=== PATIENT | male | born 1940 | race Caucasian/White ===

== ENCOUNTER 2016-07-16 12:53 | Emergency (ER) | payer MEDICARE ==
[~2016-07-16] VITALS: Ht 182.9 cm; Wt 91.0 kg
[~2016-07-16 12:53] MED LIST: AMOX1TAB64 PO; HYDR-3240 PO
[2016-07-16] MEDS ORDERED: NAPR1TAB25 PO (13:09)
[2016-07-16] MEDS ORDERED: LIDOCAINE 1%-EPI 1:100K, 20ML ONE (13:17)
[2016-07-16] MEDS ORDERED: DIPH,PERTUSS(ACELL),TET VAC/PF 0.5 ML IM-VACC ONE ×2 (13:17→13:30)
[2016-07-16] MEDS ORDERED: LIDOCAINE 1%-EPI 1:100K, 50ML INFIL ONE (13:30)
[2016-07-16 14:04] VITALS: BP 163/104
[2016-07-16] MEDS ORDERED: BACITRACIN ZINC OINT 500U/GM, 0.9 GM ONE (15:37)
== END 2016-07-16 16:02 | disposition home or self-care (01) ==
LOC: ED 15:56
DX: S01.81XA Laceration without foreign body of other part of head, initial encounter (principal); Z23 Encounter for immunization; Z85.828 Personal history of other malignant neoplasm of skin; W19.XXXA Unspecified fall, initial encounter; Y93.89 Activity, other specified; Y99.8 Other external cause status; Y92.89 Other specified places as the place of occurrence of the external cause
CPT/HCPCS: 12002; 70450; 70486; 90471; 90715

== ENCOUNTER 2018-08-11 01:32 | Inpatient (IN) | payer MEDICARE ==
[~2018-08-11] VITALS: Ht 182.9 cm; Wt 71.8 kg
[~2018-08-11 01:32] MED LIST changes: +NAPR1TAB25 PO
--- NOTE | 2018-08-11 01:53 | NUR ---
pt presented with c/o cough 5 days with all kalani pain with SOB and lost 20lbs for 2 months. monitors applied, siderail sup x2, call light within reach
[2018-08-11] MEDS ORDERED: SODIUM CHLORIDE FLUSH 10ML SYR IVF ONE (02:00)
--- NOTE | 2018-08-11 02:06 | NUR ---
BREAK RN NOTE ROSA JAMES IS STARTING IV VSS
[2018-08-11 02:24] LABS: MEAN CORPUSCULAR HEMOGLOBIN 29.7 pg (27.5-34.5); MEAN CORPUSCULAR HGB CONC 33.1 g/dL (33.2-36.2); MEAN CORPUSCULAR VOLUME 89.8 fL (81-97); MEAN PLATELET VOLUME 7.3 fL (7.4-10.4); RED BLOOD COUNT 4.81 x10^6/uL (4.38-5.82); RED CELL DISTRIBUTION WIDTH 15.9 % (9.4-14.8)
[2018-08-11 02:29] LABS: PLATELET COUNT 1191 x10^3/uL (130-400)
[2018-08-11 02:31] LABS: ALANINE AMINOTRANSFERASE 44 U/L (12-78); ALBUMIN 2.9 g/dL (3.4-5.0); ANION GAP 6 mmol/L (5-15); CALCIUM 9.4 mg/dL (8.5-10.1); CHLORIDE 106 mmol/L (98-107); CREATININE 1.17 mg/dL (0.7-1.3)
[2018-08-11 02:36] LABS: ALKALINE PHOSPHATASE 108 U/L (45-117); BILIRUBIN,TOTAL 0.4 mg/dL (0.2-1.0); T4 (THYROXINE) 11.7 mcg/dL (4.5-12.1); TOTAL PROTEIN 7.2 g/dL (6.4-8.2); TROPONIN I < 0.015 ng/mL (0.000-0.045)
[2018-08-11 02:41] LABS: BASOPHILS # (AUTO) 0.01 x10^3/uL (0-0.1); BASOPHILS % (AUTO) 0 % (0-1); EOSINOPHILS # (AUTO) 0.08 x10^3/uL (0-0.4); EOSINOPHILS % (AUTO) 1 % (1-7); LYMPHOCYTES % (AUTO) 5 % (22-44); MD MORPH REVIEW ONLY; MONOCYTES # (AUTO) 0.45 x10^3/uL (0.2-0.8); MONOCYTES % (AUTO) 3 % (2-9); NEUTROPHILS # (AUTO) 12.11 x10^3/uL (1.8-6.8); NEUTROPHILS % (AUTO) 91 % (42-75)
[2018-08-11 02:42] LABS: <PLATELET ESTIMATE> INCREASED; ANISOCYTOSIS 1+
[2018-08-11 02:43] LABS: LARGE PLATELETS 1+
[2018-08-11] MEDS ORDERED: OMNIPAQUE 350 MG/ML, 100ML BOTTLE ONE (02:59)
[2018-08-11] MEDS ORDERED: SODIUM CHLORIDE 0.9% 1,000ML IVBOLUS ONE (03:00)
--- NOTE | 2018-08-11 03:05 | NUR ---
PT RESTING ON GURNEY, IV FLUIDS INFUSING, MONITORS IN PLACE, CALL LIGHT WITHIN REACH.
[2018-08-11] MEDS ORDERED: CEFTRIAXONE PMX 1GM/50ML 50 ML ONE (03:38)
--- NOTE | 2018-08-11 03:53 | NUR ---
ANGLE SHEARER AT PT'S BEDSIDE FOR LAB DRAW, BLOOD C/X X2 SETS
[2018-08-11] MEDS ORDERED: CEFTRIAXONE PMX 1GM/50ML 50 ML IVPB ONE (04:00)
[2018-08-11] MEDS ORDERED: AZITHROMYCIN 500 MG in SODIUM CHLORIDE 0.9% 250 ML IVPB ONE (04:00)
--- NOTE | 2018-08-11 04:00 | NUR ---
PT RESTING ON GURNEY, IV ABX STARTED, MONITORS IN PLACE, CALL LIGHT WITHINREACH. AWAITING ROOM FOR ADMIT
[2018-08-11] MEDS ORDERED: ONDANSETRON 2MG/ML, 2ML ONE (04:49)
[2018-08-11] MEDS: ONDANSETRON 2MG/ML, 2ML IVPush PRN (04:50)
--- NOTE | 2018-08-11 04:54 | NUR ---
pt resting on gurney, monitors in place, call light within reach. admit md at bedside for eval
[2018-08-11] MEDS ORDERED: ALBUTEROL/IPRATROPIUM 2.5MG/0.5MG, 3 ML HHN PRN (05:00)
[2018-08-11 05:42] VITALS: BP 108/70
[2018-08-11] MEDS: SODIUM CHLORIDE 0.9% 1,000 ML IV SCH ×3 (05:53→19:34)
[2018-08-11] MEDS: ASPIRIN 325 MG TABLET EC PO SCH (06:00)
[2018-08-11 07:19] VITALS: BP 96/59
[2018-08-11 07:59] LABS: MEAN CORPUSCULAR HEMOGLOBIN 29.3 pg (27.5-34.5); MEAN CORPUSCULAR HGB CONC 32.3 g/dL (33.2-36.2); MEAN CORPUSCULAR VOLUME 90.7 fL (81-97); RED BLOOD COUNT 4.04 x10^6/uL (4.38-5.82); RED CELL DISTRIBUTION WIDTH 15.7 % (9.4-14.8)
[2018-08-11 08:02] LABS: PLATELET COUNT 1010 x10^3/uL (130-400)
[2018-08-11] MEDS: METRONIDAZOLE PMX 500MG/100ML 100 ML IV SCH ×3 (08:53→19:34)
[2018-08-11 08:59] LABS: BASOPHILS # (AUTO) 0.07 x10^3/uL (0-0.1); BASOPHILS % (AUTO) 1 % (0-1); EOSINOPHILS # (AUTO) 0.05 x10^3/uL (0-0.4); EOSINOPHILS % (AUTO) 0 % (1-7); LYMPHOCYTES # (AUTO) 0.58 x10^3/uL (1-3.4); LYMPHOCYTES % (AUTO) 5 % (22-44); MD SCAN; MONOCYTES # (AUTO) 0.53 x10^3/uL (0.2-0.8); MONOCYTES % (AUTO) 4 % (2-9); NEUTROPHILS # (AUTO) 10.84 x10^3/uL (1.8-6.8); NEUTROPHILS % (AUTO) 90 % (42-75)
[2018-08-11 10:49] LABS: RAPID INFLUENZA A Negative (Negative); RAPID INFLUENZA B Negative (Negative)
[2018-08-11 13:38] VITALS: BP 121/71
[2018-08-11 19:12] VITALS: BP 112/69
[2018-08-12] MEDS: METRONIDAZOLE PMX 500MG/100ML 100 ML IV SCH ×4 (01:28→20:03)
[2018-08-12 01:35] VITALS: BP 148/76
[2018-08-12] MEDS: ACETAMINOPHEN 325 MG TABLET PO PRN (02:15)
[2018-08-12 04:49] LABS: MEAN CORPUSCULAR HEMOGLOBIN 29.7 pg (27.5-34.5); MEAN CORPUSCULAR HGB CONC 33.2 g/dL (33.2-36.2); MEAN CORPUSCULAR VOLUME 89.5 fL (81-97); MEAN PLATELET VOLUME 7.1 fL (7.4-10.4); RED BLOOD COUNT 4.12 x10^6/uL (4.38-5.82); RED CELL DISTRIBUTION WIDTH 15.8 % (9.4-14.8)
[2018-08-12 04:56] LABS: PLATELET COUNT 1004 x10^3/uL (130-400)
[2018-08-12 04:58] LABS: ANION GAP 3 mmol/L (5-15); CALCIUM 8.7 mg/dL (8.5-10.1); CHLORIDE 108 mmol/L (98-107); CREATININE 0.93 mg/dL (0.7-1.3)
[2018-08-12] MEDS: LEVOFLOXACIN/PMX 750MG/150ML 150 ML IV SCH (05:00)
[2018-08-12] MEDS: ASPIRIN 325 MG TABLET EC PO SCH (05:00)
[2018-08-12] MEDS: SODIUM CHLORIDE 0.9% 1,000 ML IV SCH ×4 (05:00→23:02)
[2018-08-12 05:42] LABS: BASOPHILS # (AUTO) 0.02 x10^3/uL (0-0.1); BASOPHILS % (AUTO) 0 % (0-1); EOSINOPHILS # (AUTO) 0.14 x10^3/uL (0-0.4); EOSINOPHILS % (AUTO) 2 % (1-7); LYMPHOCYTES # (AUTO) 0.75 x10^3/uL (1-3.4); LYMPHOCYTES % (AUTO) 10 % (22-44); MD SCAN; MONOCYTES # (AUTO) 0.44 x10^3/uL (0.2-0.8); MONOCYTES % (AUTO) 6 % (2-9); NEUTROPHILS # (AUTO) 6.34 x10^3/uL (1.8-6.8); NEUTROPHILS % (AUTO) 83 % (42-75)
[2018-08-12 07:29] VITALS: BP 134/68
[2018-08-12] MEDS: HEPARIN 5,000 UNITS/ML, 1ML SQ SCH ×2 (11:58→20:03)
[2018-08-12] MEDS ORDERED: METHOCARBAMOL 750 MG TABLET PO PRN (12:00)
[2018-08-12 15:13] VITALS: BP 144/90
--- NOTE | 2018-08-12 17:18 | NUR ---
REC REG/THIN WITH NESHA QUEVEDO; owen precaution sheet posted at bedside Addendum: 08/12/18 at [address] Amended: Links added.
[2018-08-12 19:30] VITALS: BP 154/89
[2018-08-13 01:04] VITALS: BP 119/58
[2018-08-13] MEDS: METRONIDAZOLE PMX 500MG/100ML 100 ML IV SCH ×4 (02:34→20:20)
[2018-08-13] MEDS: HEPARIN 5,000 UNITS/ML, 1ML SQ SCH ×3 (04:22→20:20)
[2018-08-13] MEDS: ASPIRIN 325 MG TABLET EC PO SCH (04:23)
[2018-08-13] MEDS: PANTOPROZOLE 40MG TABLET PO SCH (04:23)
[2018-08-13] MEDS: ACETAMINOPHEN 325 MG TABLET PO PRN (04:23)
[2018-08-13 05:05] LABS: MEAN CORPUSCULAR HGB CONC 33.5 g/dL (33.2-36.2); MEAN CORPUSCULAR VOLUME 89.6 fL (81-97); MEAN PLATELET VOLUME 7.1 fL (7.4-10.4); RED BLOOD COUNT 4.17 x10^6/uL (4.38-5.82); RED CELL DISTRIBUTION WIDTH 15.3 % (9.4-14.8)
[2018-08-13 05:10] LABS: ANION GAP 3 mmol/L (5-15); CALCIUM 8.6 mg/dL (8.5-10.1); CHLORIDE 108 mmol/L (98-107); CREATININE 0.83 mg/dL (0.7-1.3)
[2018-08-13] MEDS: LEVOFLOXACIN/PMX 750MG/150ML 150 ML IV SCH (05:12)
[2018-08-13] MEDS: SODIUM CHLORIDE 0.9% 1,000 ML IV SCH ×2 (05:12→16:46)
[2018-08-13 05:55] LABS: PLATELET COUNT 1039 x10^3/uL (130-400)
[2018-08-13 05:57] LABS: BASOPHILS # (AUTO) 0.01 x10^3/uL (0-0.1); BASOPHILS % (AUTO) 0 % (0-1); EOSINOPHILS # (AUTO) 0.18 x10^3/uL (0-0.4); EOSINOPHILS % (AUTO) 2 % (1-7); LYMPHOCYTES # (AUTO) 0.86 x10^3/uL (1-3.4); LYMPHOCYTES % (AUTO) 12 % (22-44); MD SCAN; MONOCYTES # (AUTO) 0.32 x10^3/uL (0.2-0.8); MONOCYTES % (AUTO) 4 % (2-9); NEUTROPHILS # (AUTO) 6.05 x10^3/uL (1.8-6.8); NEUTROPHILS % (AUTO) 81 % (42-75)
[2018-08-13 08:55] VITALS: BP 105/58
[2018-08-13] MEDS: ONDANSETRON 2MG/ML, 2ML IVPush PRN ×2 (13:33→20:20)
[2018-08-13 13:57] VITALS: BP 151/83
[2018-08-13 13:58] LABS: PSA SCREEN 1.22 ng/mL (0.00-4.00)
[2018-08-13] MEDS ORDERED: OMNIPAQUE 350 MG/ML, 100ML BOTTLE ONE (14:49)
[2018-08-13 18:57] VITALS: BP 143/78
[2018-08-14 00:12] VITALS: BP 130/71
[2018-08-14] MEDS: SODIUM CHLORIDE 0.9% 1,000 ML IV SCH ×2 (00:17→13:58)
[2018-08-14] MEDS: METRONIDAZOLE PMX 500MG/100ML 100 ML IV SCH ×3 (02:19→13:57)
[2018-08-14] MEDS: HEPARIN 5,000 UNITS/ML, 1ML SQ SCH ×2 (04:14→12:06)
[2018-08-14] MEDS: ACETAMINOPHEN 325 MG TABLET PO PRN ×2 (04:17→13:57)
[2018-08-14] MEDS: LEVOFLOXACIN/PMX 750MG/150ML 150 ML IV SCH (05:26)
[2018-08-14] MEDS: ASPIRIN 325 MG TABLET EC PO SCH (05:26)
[2018-08-14] MEDS: PANTOPROZOLE 40MG TABLET PO SCH (05:26)
[2018-08-14 07:03] VITALS: BP 143/75
[2018-08-14] MEDS: ONDANSETRON 2MG/ML, 2ML IVPush PRN (09:26)
[2018-08-14] MEDS ORDERED: ONDANSETRON 8 MG TABLET PO PRN (12:00)
[2018-08-14 13:39] VITALS: BP 125/73
[2018-08-14] MEDS ORDERED: LEVO750T6 PO (15:42)
[2018-08-14] MEDS ORDERED: L.AC1CAP6 PO (15:42)
[2018-08-14] MEDS ORDERED: ASPI-650 PO (15:42)
[2018-08-14] MEDS ORDERED: METR500T PO (15:42)
[2018-08-14] MEDS ORDERED: PANT40TA5 PO (15:42)
== END 2018-08-14 17:51 | disposition home or self-care (01) | DRG 871 ==
LOC: ED 03:05 → EDIP 03:50 → 3NW 05:31
PROVIDERS: ADMIT Internal Medicine; ATTEND Internal Medicine
DX: A41.9 Sepsis, unspecified organism (principal); J69.0 Pneumonitis due to inhalation of food and vomit; J15.9 Unspecified bacterial pneumonia; J98.11 Atelectasis; E44.0 Moderate protein-calorie malnutrition; Z68.21 Body mass index [BMI] 21.0-21.9, adult; M10.9 Gout, unspecified; R53.81 Other malaise; D47.3 Essential (hemorrhagic) thrombocythemia; I87.2 Venous insufficiency (chronic) (peripheral); K44.9 Diaphragmatic hernia without obstruction or gangrene; R13.10 Dysphagia, unspecified; Z85.828 Personal history of other malignant neoplasm of skin; Z87.891 Personal history of nicotine dependence
CPT/HCPCS: 36415; 71046; 71275; 74018; 74177; 74230; 80048; 80053; 81270; 82378; 82668; 83735; 83880; 84145; 84436; 84443; 84484; 85025; 86301; 87040; 87070; 87205; 87400; 87806; 93005; 93306; 96374; 96375; G0103; G0378; J0456; J0696; J1644; J1956; J2405; Q9967; G0475; J7030; J7050

== ENCOUNTER 2019-10-15 17:41 | Inpatient (IN) | payer MEDICARE ==
[~2019-10-15] VITALS: Ht 182.9 cm; Wt 78.0 kg
[~2019-10-15 17:41] MED LIST changes: +ASPI-650 PO; +L.AC1CAP6 PO; +LEVO750T6 PO; +METR500T PO; +PANT40TA6 PO
--- NOTE | 2019-10-15 17:51 | NUR ---
THIS IS A 79 YO MALE BIB [facility] FROM [facility] FOR HEADACHE SINCE LAST NIGHT, NO RELIEF SINCE. PATIENT AMBULATORY TO ROOM. ALSO PRESENTS WITH LEFT EYE DRAINAGE/SWELLING/REDNESS WITH BLURRED VISION I JUST WOKE UP WITH IT". A&OX4, DENIES ANY FEVER/CHILLS/N/V/D, HEADACHE IS RATED 9/10 LOCATED ON LEFT SIDE OF HEAD. ALL MONITORING IN PLACE, NSR ON MONITOR. CALL LIGHT IN REACH. EKG DONE. PA TO ROOM FOR EVAL
--- NOTE | 2019-10-15 17:53 | NUR ---
PATIENT HOSPITALIZED FOR PNA 6 MONTHS AGO, STATES "I'VE FELT A LITTLE SHORT OF BREATH SICNE THEN". NO NEW ONSET OR WORSENING ON SOB.
--- NOTE | 2019-10-15 17:59 | NUR ---
VA'S COMPLETED BY PACO VIERA TECH
--- NOTE | 2019-10-15 18:17 | NUR ---
MD HERNESTO TO ROOM
[2019-10-15] MEDS ORDERED: ONDANSETRON 2MG/ML, 2ML ONE ×2 (18:27→19:29)
[2019-10-15] MEDS ORDERED: MORPHINE SULFATE 4 MG/ML, 1ML ONE (18:27)
[2019-10-15] MEDS ORDERED: MORPHINE SULFATE 4 MG/ML, 1ML IVPush ONE (18:30)
[2019-10-15] MEDS ORDERED: SODIUM CHLORIDE 0.9% 1,000ML IVBOLUS ONE (18:30)
[2019-10-15] MEDS ORDERED: ONDANSETRON 2MG/ML, 2ML IVPush ONE ×2 (18:30→19:30)
[2019-10-15 18:33] LABS: ALBUMIN 3.5 g/dL (3.4-5.0); ANION GAP 3 mmol/L (5-15); CHLORIDE 108 mmol/L (98-107)
[2019-10-15 18:38] LABS: TROPONIN I < 0.015 ng/mL (0.000-0.045)
--- NOTE | 2019-10-15 18:40 | NUR ---
PIV PLACED, PATIENT MEDICATED PER EMAR. BLOOD CULTURES X2 DRAWN BY LAB
[2019-10-15 18:46] LABS: BASOPHILS # (AUTO) 0.03 x10^3/uL (0-0.1); BASOPHILS % (AUTO) 0 % (0-1); EOSINOPHILS # (AUTO) 0.12 x10^3/uL (0-0.4); EOSINOPHILS % (AUTO) 1 % (1-7); LYMPHOCYTES % (AUTO) 9 % (22-44); MD MORPH REVIEW ONLY; MEAN CORPUSCULAR HEMOGLOBIN 29.6 pg (27.5-34.5); MEAN CORPUSCULAR HGB CONC 32.9 g/dL (33.2-36.2); MEAN PLATELET VOLUME 7.8 fL (7.4-10.4); MONOCYTES # (AUTO) 0.47 x10^3/uL (0.2-0.8); MONOCYTES % (AUTO) 4 % (2-9); NEUTROPHILS # (AUTO) 10.66 x10^3/uL (1.8-6.8); NEUTROPHILS % (AUTO) 86 % (42-75); RED BLOOD COUNT 4.81 x10^6/uL (4.38-5.82); RED CELL DISTRIBUTION WIDTH 16.9 % (9.4-14.8)
[2019-10-15 18:51] LABS: <PLATELET ESTIMATE> INCREASED; ANISOCYTOSIS 1+; GIANT PLATELETS 1+; LARGE PLATELETS 1+
--- NOTE | 2019-10-15 19:01 | NUR ---
OPTHAMOLOGIST IN ROOM FOR EVAL
--- NOTE | 2019-10-15 20:27 | NUR ---
REPORT GIVEN TO JUJU PANDEY. PLAN OF CARE DISCUSSED
[2019-10-15 21:00] VITALS: BP 164/78
[2019-10-15] MEDS ORDERED: TIMOLOL OPHTH 0.5%, 5ML LEFTEYE SCH (21:00)
[2019-10-15] MEDS ORDERED: CIPROFLOXACIN 500 MG TABLET PO SCH (21:00)
[2019-10-15] MEDS ORDERED: DORZOLAMIDE OPHTH 2%, 10ML LEFTEYE SCH (21:00)
[2019-10-15] MEDS ORDERED: BRIMONIDINE TARTRATE OPHTH 0.15%, 5ML LEFTEYE SCH (21:00)
[2019-10-15] MEDS ORDERED: TOBRAMYCIN OPHTH OINT 3.5 GM OP SCH (21:30)
[2019-10-15] MEDS: TOBRAMYCIN OPHTH OINT 3.5 GM OP SCH (22:00)
[2019-10-15] MEDS ORDERED: ASA/APAP/ CAFFEINE TABLET PO PRN (22:00)
[2019-10-15] MEDS ORDERED: ACETAMINOPHEN 325 MG TABLET PO PRN (22:00)
[2019-10-15] MEDS ORDERED: ONDANSETRON 2MG/ML, 2ML IVPush PRN (22:00)
[2019-10-15] MEDS ORDERED: VANCOMYCIN 25 MG/ML OP SCH (22:00)
[2019-10-15] MEDS ORDERED: hydrALAzine 20 MG/ML, 1ML IVPush PRN (22:00)
[2019-10-15] MEDS ORDERED: VANCOMYCIN OP SCH (22:00)
[2019-10-15] MEDS ORDERED: morphine SULFATE 10 MG/ML, 1ML IVPush PRN (22:00)
[2019-10-15] MEDS ORDERED: DOCUSATE 100 MG CAPSULE PO PRN (22:00)
[2019-10-15] MEDS ORDERED: TEMAZEPAM 15 MG CAPSULE PO PRN (22:00)
[2019-10-15] MEDS ORDERED: GUAIFENESIN/DM 200-20MG, 10ML UDC PO PRN (22:00)
[2019-10-15] MEDS ORDERED: METHOCARBAMOL 500 MG TABLET PO PRN (22:00)
[2019-10-15] MEDS: BRIMONIDINE TARTRATE OPHTH 0.15%, 5ML LEFTEYE SCH (22:38)
[2019-10-15] MEDS: CIPROFLOXACIN 500 MG TABLET PO SCH (22:39)
[2019-10-15] MEDS: ENOXAPARIN 40 MG/0.4 ML SQ SCH (22:52)
[2019-10-15] MEDS: DORZOLAMIDE OPHTH 2%, 10ML LEFTEYE SCH (23:31)
[2019-10-16] MEDS: TIMOLOL OPHTH 0.5%, 5ML LEFTEYE SCH ×3 (00:23→21:32)
[2019-10-16 01:45] VITALS: BP 149/69
[2019-10-16] MEDS: OXYcodone/APAP 5/325MG TABLET PO PRN ×4 (01:46→21:30)
[2019-10-16 05:41] LABS: MEAN CORPUSCULAR HEMOGLOBIN 28.9 pg (27.5-34.5); MEAN CORPUSCULAR HGB CONC 31.5 g/dL (33.2-36.2); MEAN PLATELET VOLUME 7.4 fL (7.4-10.4); RED CELL DISTRIBUTION WIDTH 17.1 % (9.4-14.8)
[2019-10-16 05:45] LABS: ALBUMIN 3.1 g/dL (3.4-5.0); ANION GAP 3 mmol/L (5-15); CALCIUM 8.6 mg/dL (8.5-10.1); CHLORIDE 109 mmol/L (98-107)
[2019-10-16 05:52] LABS: PLATELET COUNT 1383 x10^3/uL (130-400)
[2019-10-16 05:57] LABS: ALANINE AMINOTRANSFERASE 25 U/L (12-78); ALKALINE PHOSPHATASE 87 U/L (45-117); BILIRUBIN,TOTAL 0.4 mg/dL (0.2-1.0); CREATININE 0.82 mg/dL (0.7-1.3); TOTAL PROTEIN 6.7 g/dL (6.4-8.2)
[2019-10-16 06:13] LABS: BASOPHILS # (AUTO) 0.03 x10^3/uL (0-0.1); BASOPHILS % (AUTO) 0 % (0-1); EOSINOPHILS # (AUTO) 0.02 x10^3/uL (0-0.4); EOSINOPHILS % (AUTO) 0 % (1-7); LYMPHOCYTES % (AUTO) 5 % (22-44); MD MORPH REVIEW ONLY; MONOCYTES # (AUTO) 0.42 x10^3/uL (0.2-0.8); MONOCYTES % (AUTO) 3 % (2-9); NEUTROPHILS # (AUTO) 13.32 x10^3/uL (1.8-6.8); NEUTROPHILS % (AUTO) 92 % (42-75)
[2019-10-16 06:14] LABS: ANISOCYTOSIS 1+; ECHINOCYTES 1+
[2019-10-16 06:15] LABS: <PLATELET ESTIMATE> INCREASED; ACANTHOCYTES 1+; LARGE PLATELETS 1+
[2019-10-16 07:48] VITALS: BP 139/75
[2019-10-16] MEDS ORDERED: VANCOMYCIN 25 MG/ML OP SCH (08:00)
[2019-10-16] MEDS: FAMOTIDINE 20 MG TABLET PO SCH ×2 (09:00→21:00)
[2019-10-16] MEDS: CIPROFLOXACIN 500 MG TABLET PO SCH ×2 (09:25→21:30)
[2019-10-16] MEDS: ASPIRIN 81 MG TABLET CHEW PO SCH (09:25)
[2019-10-16] MEDS: DORZOLAMIDE OPHTH 2%, 10ML LEFTEYE SCH ×3 (09:26→21:31)
[2019-10-16] MEDS: BRIMONIDINE TARTRATE OPHTH 0.15%, 5ML LEFTEYE SCH ×3 (09:27→21:31)
[2019-10-16] MEDS: TOBRAMYCIN OPHTH OINT 3.5 GM OP SCH ×8 (10:00→22:38)
[2019-10-16] MEDS: VANCOMYCIN 25 MG/ML OP SCH ×7 (11:00→23:00)
[2019-10-16 13:37] VITALS: BP 161/71
[2019-10-16 18:49] VITALS: BP 145/75
[2019-10-16] MEDS: ENOXAPARIN 40 MG/0.4 ML SQ SCH (22:00)
[2019-10-17] MEDS: VANCOMYCIN 25 MG/ML OP SCH ×11 (01:00→21:54)
[2019-10-17 01:15] VITALS: BP 158/82
[2019-10-17 07:08] VITALS: BP 142/90
[2019-10-17] MEDS: FAMOTIDINE 20 MG TABLET PO SCH ×2 (07:46→20:52)
[2019-10-17] MEDS: CIPROFLOXACIN 500 MG TABLET PO SCH ×2 (07:46→20:56)
[2019-10-17] MEDS: OXYcodone/APAP 5/325MG TABLET PO PRN ×3 (07:46→23:11)
[2019-10-17] MEDS: BRIMONIDINE TARTRATE OPHTH 0.15%, 5ML LEFTEYE SCH ×3 (07:47→20:48)
[2019-10-17] MEDS: DORZOLAMIDE OPHTH 2%, 10ML LEFTEYE SCH ×3 (07:47→20:49)
[2019-10-17] MEDS: ASPIRIN 81 MG TABLET CHEW PO SCH (07:48)
[2019-10-17] MEDS: TIMOLOL OPHTH 0.5%, 5ML LEFTEYE SCH ×2 (07:48→20:49)
[2019-10-17] MEDS: TOBRAMYCIN OPHTH OINT 3.5 GM OP SCH ×8 (07:48→21:54)
[2019-10-17 09:23] LABS: MEAN CORPUSCULAR HEMOGLOBIN 28.7 pg (27.5-34.5); MEAN CORPUSCULAR HGB CONC 31.7 g/dL (33.2-36.2); RED BLOOD COUNT 4.65 x10^6/uL (4.38-5.82); RED CELL DISTRIBUTION WIDTH 16.9 % (9.4-14.8)
[2019-10-17 10:01] LABS: MEAN PLATELET VOLUME 7.1 fL (7.4-10.4)
[2019-10-17 10:12] LABS: BASOPHILS % (AUTO) 0 % (0-1); EOSINOPHILS # (AUTO) 0.08 x10^3/uL (0-0.4); EOSINOPHILS % (AUTO) 1 % (1-7); LYMPHOCYTES # (AUTO) 0.78 x10^3/uL (1-3.4); LYMPHOCYTES % (AUTO) 7 % (22-44); MD MORPH REVIEW ONLY; MONOCYTES # (AUTO) 0.55 x10^3/uL (0.2-0.8); MONOCYTES % (AUTO) 5 % (2-9); NEUTROPHILS # (AUTO) 9.99 x10^3/uL (1.8-6.8); NEUTROPHILS % (AUTO) 88 % (42-75)
[2019-10-17 10:13] LABS: <PLATELET ESTIMATE> INCREASED; ACANTHOCYTES 2+
[2019-10-17 10:14] LABS: ECHINOCYTES 1+; LARGE PLATELETS 2+
[2019-10-17 12:48] VITALS: BP 135/73
[2019-10-17] MEDS: ACYCLOVIR 200 MG CAPSULE PO SCH ×3 (16:17→20:52)
[2019-10-17 20:45] VITALS: BP 148/83
[2019-10-17] MEDS: ENOXAPARIN 40 MG/0.4 ML SQ SCH (21:54)
[2019-10-18 00:53] VITALS: BP 138/81
[2019-10-18] MEDS: VANCOMYCIN 25 MG/ML OP SCH ×7 (00:53→15:51)
[2019-10-18] MEDS: ACYCLOVIR 200 MG CAPSULE PO SCH ×3 (06:01→13:38)
[2019-10-18 06:57] LABS: MEAN CORPUSCULAR HEMOGLOBIN 29.3 pg (27.5-34.5); MEAN CORPUSCULAR HGB CONC 32.5 g/dL (33.2-36.2); MEAN PLATELET VOLUME 7.1 fL (7.4-10.4); RED BLOOD COUNT 4.68 x10^6/uL (4.38-5.82); RED CELL DISTRIBUTION WIDTH 16.7 % (9.4-14.8)
[2019-10-18 07:29] LABS: BASOPHILS # (AUTO) 0.09 x10^3/uL (0-0.1); BASOPHILS % (AUTO) 1 % (0-1); EOSINOPHILS # (AUTO) 0.06 x10^3/uL (0-0.4); EOSINOPHILS % (AUTO) 1 % (1-7); LYMPHOCYTES # (AUTO) 1.04 x10^3/uL (1-3.4); LYMPHOCYTES % (AUTO) 9 % (22-44); MD SCAN; MONOCYTES # (AUTO) 0.67 x10^3/uL (0.2-0.8); MONOCYTES % (AUTO) 6 % (2-9); NEUTROPHILS # (AUTO) 9.33 x10^3/uL (1.8-6.8); NEUTROPHILS % (AUTO) 83 % (42-75)
[2019-10-18] MEDS: TIMOLOL OPHTH 0.5%, 5ML LEFTEYE SCH (09:00)
[2019-10-18 09:23] LABS: PLATELET COUNT > 1500 x10^3/uL (130-400)
[2019-10-18 09:25] LABS: PLATELET COUNT > 1500 x10^3/uL (130-400)
[2019-10-18 09:27] LABS: PLATELET COUNT > 1500 x10^3/uL (130-400)
[2019-10-18] MEDS: OXYcodone/APAP 5/325MG TABLET PO PRN (09:45)
[2019-10-18] MEDS: ASPIRIN 81 MG TABLET CHEW PO SCH (09:46)
[2019-10-18] MEDS: CIPROFLOXACIN 500 MG TABLET PO SCH (09:46)
[2019-10-18 09:52] VITALS: BP 114/63
[2019-10-18] MEDS: TOBRAMYCIN OPHTH OINT 3.5 GM OP SCH ×4 (09:54→15:51)
[2019-10-18] MEDS ORDERED: FAMOTIDINE 10 MG TAB PO SCH (09:57)
[2019-10-18] MEDS: DORZOLAMIDE OPHTH 2%, 10ML LEFTEYE SCH (13:22)
[2019-10-18] MEDS: BRIMONIDINE TARTRATE OPHTH 0.15%, 5ML LEFTEYE SCH (13:22)
[2019-10-18 13:51] VITALS: BP 149/81
== END 2019-10-18 15:50 | disposition left against medical advice (07) | DRG 121 ==
LOC: ED 19:30 → EDIP 20:01 → 3N 20:37
PROVIDERS: ADMIT Internal Medicine; ATTEND Internal Medicine
DX: H16.002 Unspecified corneal ulcer, left eye (principal); E43 Unspecified severe protein-calorie malnutrition; H53.142 Visual discomfort, left eye; D72.829 Elevated white blood cell count, unspecified; D47.3 Essential (hemorrhagic) thrombocythemia; E87.8 Other disorders of electrolyte and fluid balance, not elsewhere classified; Z68.23 Body mass index [BMI] 23.0-23.9, adult; M79.89 Other specified soft tissue disorders
CPT/HCPCS: 36415; 70450; 71045; 80048; 80053; 82040; 83605; 84443; 84484; 85025; 87040; 93005; 93970; 96374; 96375; 96376; 99285; G0378; J2405; J2270; J7030

== ENCOUNTER 2019-11-01 10:55 | Emergency (ER) | payer MEDICARE ==
[~2019-11-01] VITALS: Ht 182.9 cm; Wt 75.4 kg
[~2019-11-01 10:55] MED LIST changes: +PANT40TA5 PO; -PANT40TA6 PO
[2019-11-01 12:59] VITALS: BP 132/74
== END 2019-11-01 12:00 | disposition home or self-care (01) ==
LOC: ED 11:54
DX: H16.032 Corneal ulcer with hypopyon, left eye (principal)
CPT/HCPCS: 99282